=== PATIENT | male | born 1965 | race Caucasian/White ===

== ENCOUNTER 2017-10-21 07:15 | Emergency (ER) | payer OTHER ==
[~2017-10-21] VITALS: Ht 177.8 cm; Wt 77.1 kg
[~2017-10-21 07:15] MED LIST: ACETAMINOPHEN-1 EAC1 PO; ALBUTEROL2.5 MG/0.5 INH; AMOXICILLIN 50500 MG PO; AZITHROMYCIN 2250 MG PO; CIPROFLOXACIN500 M1 PO; CYCLOBENZAPRINE5 MG PO; DOXYCYCLINE 10100 MG PO; HYDROCODON-ACE1 EAC7 PO; HYDROCODONE-AP1 EAC6 PO; LEVAQUIN 500 M500 M2 PO; LEVAQUIN 500 M500 MG PO; LISINOPRIL40 MG; LOPRESSOR 50 MG50 M1; MEDROLDOSEPACK PO; MOBIC7.5 M1 PO; MUCINEX TA600 MG/TA1 PO; NAPROSYN500 MG PO; NAPROXEN 500MG500 MG PO; NOHOMEMEDICATIONS; NORCO 5-325 TA1 EACH PO; ONDANSETRON HCL4 M2 PO; PERCOCET 5-3251 EACH PO; PREDNISONE 10 M10 M1; PREDNISONE 10 M10 MG PO; PROMETHAZINE-C120 ML PO; ROBAXIN 750 MG750 MG PO; SENOKOTXTRA17.2 MG PO; SINGULAIR 10 MG10 M1 PO; TESSALON PERLE100 MG PO; TRAMADOL 50 MG50 MG PO; ULTRAM 50MG TAB50 MG PO; VENTOLIN HFA 1818 GM INH; ZOFRAN4 MG PO; ZPAK PO
[2017-10-21] MEDS ORDERED: OTHER MISCELL (08:14)
[2017-10-21] MEDS ORDERED: NAPROSYN500 MG PO (08:16)
[2017-10-21] MEDS ORDERED: NORCO 5-325 TA1 EACH PO (08:16)
[2017-10-21] MEDS ORDERED: CYCLOBENZAPRINE5 MG PO (08:16)
[2017-10-21 08:24] VITALS: BP 117/86
== END 2017-10-21 08:24 | disposition home or self-care (01) ==
LOC: M.ERS 07:15
DX: M25.512 Pain in left shoulder (principal); M95.8 Other specified acquired deformities of musculoskeletal system; I10 Essential (primary) hypertension; F17.210 Nicotine dependence, cigarettes, uncomplicated

== ENCOUNTER 2018-04-25 15:06 | Emergency (ER) | payer OTHER ==
[~2018-04-25] VITALS: Ht 182.9 cm; Wt 72.6 kg
[~2018-04-25 15:06] MED LIST changes: +OTHER MISCELL
[2018-04-25 15:16] VITALS: BP 141/92
[2018-04-25] MEDS ORDERED: AMOXICILLIN 50500 MG PO (15:25)
[2018-04-25] MEDS ORDERED: IBUPROFEN 800800 MG PO (15:25)
[2018-04-25] MEDS ORDERED: ACETAMINOPHEN-1 EAC1 PO (15:25)
== END 2018-04-25 15:38 | disposition home or self-care (01) ==
LOC: M.ERS 15:06
DX: K08.89 Other specified disorders of teeth and supporting structures (principal); F17.210 Nicotine dependence, cigarettes, uncomplicated; I10 Essential (primary) hypertension

== ENCOUNTER 2018-06-28 17:20 | Emergency (ER) | payer OTHER ==
[~2018-06-28] VITALS: Ht 177.8 cm; Wt 74.8 kg
[~2018-06-28 17:20] MED LIST changes: +IBUPROFEN 800800 MG PO
[2018-06-28 17:42] LABS: URINE BILIRUBIN NEGATIVE (Negative); URINE BLOOD 2+ (Negative); URINE CLARITY CLEAR; URINE COLOR YELLOW; URINE GLUCOSE-RANDOM NEGATIVE (Negative); URINE KETONES NEGATIVE (Negative); URINE LEUKOCYTES-REFLEX NEGATIVE (Negative); URINE NITRITE-REFLEX NEGATIVE (Negative); URINE PROTEIN NEGATIVE (Negative); URINE SPECIFIC GRAVITY >= 1.030 (1.005-1.030); URINE UROBILINOGEN 0.2 E.U./dl (0.2-1.0)
[2018-06-28 17:51] LABS: ABSOLUTE BASOPHILS 0.1 thou/uL (0.0-0.2); ABSOLUTE EOSINOPHILS 0.5 thou/uL (0.0-0.7); ABSOLUTE LYMPHOCYTES 2.3 thou/uL (0.8-5.3); ABSOLUTE MONOCYTES 0.7 thou/uL (0.0-1.2); ABSOLUTE NEUTROPHILS 5.7 thou/uL (1.6-8.1); BASOPHILS 0.7 %; EOSINOPHILS 5.1 %; HEMATOCRIT 46.6 % (42.0-52.0); LYMPHOCYTES 25.2 %; MCH 32.9 pg (26.0-34.0); MCHC 34.3 g/dL (28.0-37.0); MCV 95.9 fL (80.0-100.0); MONOCYTES 7.4 %; NUCLEATED RBCS 0 /100WBC; PLATELET COUNT* 243 thou/uL (150-400); POLYS 61.6 %; RBC 4.86 mil/uL (4.50-6.00); RDW-CV 13.4 % (10.5-14.5); WBC 9.2 thou/uL (4.0-11.0)
[2018-06-28 17:51] LABS: BACTERIA-REFLEX None Seen /HPF (None Seen); CASTS None Seen /LPF (None Seen); CRYSTALS None Seen /LPF (None Seen); MUCUS 0-3 Light strn/LPF (None Seen); SQUAMOUS 0-3 Few /LPF (0-3); URINE RBC 0-2 Rare /HPF (0-2); URINE WBC-REFLEX None Seen /HPF (0-5)
[2018-06-28 18:04] LABS: ANION GAP 9 mmol/L (7-16); BUN 15 mg/dL (7-18); CALCIUM 8.8 mg/dL (8.5-10.1); CHLORIDE 103 mmol/L (98-107); CO2 28 mmol/L (21-32); CREATININE 1.1 mg/dL (0.6-1.3); GLUCOSE 104 mg/dL (70-99); POTASSIUM 3.3 mmol/L (3.5-5.1); SODIUM 140 mmol/L (136-145)
[2018-06-28 18:09] LABS: ALBUMIN 3.7 g/dL (3.4-5.0); ALKALINE PHOSPHATASE 73 U/L (46-116); LIPASE 164 U/L (73-393); SGOT 15 U/L (15-37); SGPT 29 U/L (30-65); TOTAL BILIRUBIN 0.5 mg/dL (<0.1-1.0); TOTAL PROTEIN 7.7 g/dL (6.4-8.2); TROPONIN-I LEVEL <0.06 ng/mL (<0.06)
[2018-06-28] MEDS ORDERED: ZPAK PO (20:25)
[2018-06-28] MEDS ORDERED: NORCO 5-325 TA1 EACH PO (20:36)
[2018-06-28 20:56] VITALS: BP 112/68
--- NOTE | 2018-06-29 11:51 | EKG ---
[place] [address] ELECTROCARDIOGRAM REPORT Name: JOAN GAVIRIA Room: [facility]#: [id number] Admission: 06/28/18 Attend Phys: Discharge: 06/28/18 Date of : 63 Report #: [id number] THIS REPORT FOR: //name// [facility] ED Test Date: 2018-06-28 Test Time: 17:49:02 Pat Name: JOAN GAVIRIA Department: Room: Gender: M Instructional Material Director: Ti BEASLEY : 1965 Requested By: Luz Harvey Order Number: [id number] MD: Ed Eric Measurements Intervals [place] Rate: 92 P: 49 VT: 137 QRS: 90 QRSD: 93 T: 53 QT: 358 QTc: 443 Interpretive Statements Sinus rhythm Probable left atrial enlargement Borderline right axis deviation Compared to ECG 02/18/2017 15:54:00 No significant changes Electronically Signed On 06-29-2018 11:51:32 CLOUD SUBJECT MATTER EXPERT by Ed Eric [email or web address] <ELECTRONICALLY SIGNED> By: Ed Eric MD, [facility] WITHIN [facility] 06/29/18 1151 [id number] 48 Ed Eric MD, FACC /EPI
== END 2018-06-28 20:56 | disposition home or self-care (01) ==
LOC: M.ERS 17:20
PROVIDERS: Nurse Practitioner Family
DX: J18.9 Pneumonia, unspecified organism (principal); I10 Essential (primary) hypertension

== ENCOUNTER 2019-05-13 16:44 | Emergency (ER) | payer OTHER ==
[~2019-05-13] VITALS: Ht 177.8 cm; Wt 74.8 kg
[2019-05-13 16:50] VITALS: BP 123/85
[2019-05-13] MEDS ORDERED: NORCO 5-325 TA1 EAC1 PO (17:06)
[2019-05-13] MEDS ORDERED: ACYCLOVIR 800800 MG PO (17:06)
== END 2019-05-13 17:21 | disposition home or self-care (01) ==
LOC: M.ERS 16:44
DX: B02.9 Zoster without complications (principal); I10 Essential (primary) hypertension; F17.210 Nicotine dependence, cigarettes, uncomplicated

== ENCOUNTER 2019-10-30 16:47 | Inpatient (IN) | payer OTHER ==
[~2019-10-30] VITALS: Ht 177.8 cm; Wt 74.8 kg
[~2019-10-30 16:47] MED LIST changes: +ACYCLOVIR 800800 MG PO; +NORCO 5-325 TA1 EAC1 PO
[2019-10-30 16:49] VITALS: BP 140/83
[2019-10-30 17:12] LABS: ABSOLUTE EOSINOPHILS 0.2 thou/uL (0.0-0.7); ABSOLUTE LYMPHOCYTES 1.9 thou/uL (0.8-5.3); ABSOLUTE MONOCYTES 0.4 thou/uL (0.0-1.2); ABSOLUTE NEUTROPHILS 5.4 thou/uL (1.6-8.1); BASOPHILS 0.5 %; EOSINOPHILS 2.5 %; HEMATOCRIT 44.2 % (42.0-52.0); HEMOGLOBIN 15.6 gm/dL (14.0-18.0); LYMPHOCYTES 23.4 %; MCHC 35.3 g/dL (28.0-37.0); MCV 96.4 fL (80.0-100.0); MONOCYTES 5.6 %; MPV 8.5 fl. (7.2-11.1); NUCLEATED RBCS 0 /100WBC; PLATELET COUNT* 227 thou/uL (150-400); RBC 4.59 mil/uL (4.50-6.00); RDW-CV 13.4 % (10.5-14.5); WBC 7.9 thou/uL (4.0-11.0)
[2019-10-30 17:20] LABS: CALCIUM 8.8 mg/dL (8.5-10.1); CREATININE 1.3 mg/dL (0.6-1.3); POTASSIUM 3.1 mmol/L (3.5-5.1)
[2019-10-30 17:31] LABS: MAGNESIUM 2.1 mg/dL (1.8-2.4); TOTAL BILIRUBIN 0.6 mg/dL (<0.1-1.0); TOTAL PROTEIN 7.9 g/dL (6.4-8.2)
[2019-10-30 17:32] LABS: PROTIME 10.4 Seconds (9.20-11.50)
[2019-10-30 18:31] VITALS: BP 99/63
[2019-10-30 18:47] VITALS: BP 113/78
[2019-10-30 19:30] VITALS: BP 103/71
[2019-10-30] MEDS ORDERED: NAPROXEN SODIU220 M2 PO (21:32)
[2019-10-30] MEDS ORDERED: ASPIRIN EC325 M1 PO (21:32)
[2019-10-30] MEDS ORDERED: SUPER THERAVIT1 EACH PO (21:33)
[2019-10-30] MEDS ORDERED: PLAVIX 75 MG TA75 MG PO (21:33)
[2019-10-30] MEDS ORDERED: LIPITOR40 MG PO (21:33)
[2019-10-30] MEDS ORDERED: PRINIVIL20 M1 PO (21:34)
[2019-10-30] MEDS ORDERED: PANTOPRAZOLE SO40 M1 PO (21:34)
[2019-10-31] VITALS (8 sets, daily range): BP systolic 94–109; BP diastolic 58–68
[2019-10-31 00:47] LABS: AMP/METHAMP Negative (Negative); BARBITURATES Negative (Negative); BENZODIAZEPINES Negative (Negative); COCAINE Negative (Negative); METHADONE Negative (Negative); OPIATES POSITIVE (Negative); PCP Negative (Negative); THC Negative (Negative)
[2019-10-31 05:09] LABS: CHOLESTEROL 194 mg/dL (<200); HDL CHOLESTEROL 47 mg/dL (>40); LDL CHOLESTEROL 130 mg/dL (<100); SERUM ASSESSMENT CLEAR; TC:HDL 4.1 Ratio (Not establshd); TRIGLYCERIDE 87 mg/dL (<150); VLDL 17 mg/dL (<40)
[2019-10-31 10:13] LABS: CALCIUM 8.5 mg/dL (8.5-10.1); CREATININE 1.2 mg/dL (0.6-1.3); MAGNESIUM 2.1 mg/dL (1.8-2.4); PHOSPHORUS* 3.6 mg/dL (2.5-4.9); POTASSIUM 4.4 mmol/L (3.5-5.1)
--- NOTE | 2019-10-31 10:16 | EKG ---
[place] [address] ELECTROCARDIOGRAM REPORT Name: JOAN GAVIRIA Room: [address] ADM IN M.R.#: [id number] Admission: 10/30/19 Attend Phys: Mallory watson Sa Discharge: Date of : 63 Date of Service: 10/30/19 1649 Report #: [id number] THIS REPORT FOR: //name// [facility] ED Test Date: 2019-10-30 Test Time: 16:49:19 Pat Name: JOAN GAVIRIA Department: Room: [address] Gender: M Rag Baler: GRUPO : 1965 Requested By: Mallory Ravi Order Number: [id number] Rory MD: Ed Eric Measurements Intervals [place] Rate: 92 P: 58 ID: 132 QRS: 86 QRSD: 97 T: 40 QT: 358 QTc: 443 Interpretive Statements Sinus rhythm Probable left atrial enlargement Compared to ECG 06/28/2018 17:49:02 No significant changes Electronically Signed On 10-31-2019 10:14:32 CDT by Ed Eric [email or web address] <ELECTRONICALLY SIGNED> By: Ed Eric MD, [facility] 10/31/19 1014 1649 1649 Ed Eric MD, [facility] /EPI
--- NOTE | 2019-10-31 10:20 | EKG ---
[place] [address] ELECTROCARDIOGRAM REPORT Name: JOAN GAVIRIA Room: [address] ADM IN .R.#: [id number] Admission: 10/30/19 Attend Phys: Mallory watson Sa Discharge: Date of : 63 Date of Service: 10/30/192007 Report #: [id number] THIS REPORT FOR: //name// [facility] Test Date: 2019-10-30 Test Time: 20:08:36 Pat Name: JOAN GAVIRIA Department: Room: [facility] Gender: M Shop Hand: CHAPITO : 1965 Requested By: Romel Aguirre Order Number: [id number] MD: Ed Eric Measurements Intervals [place] Rate: 66 P: 50 MN: 142 QRS: 78 QRSD: 98 T: 69 QT: 407 QTc: 427 Interpretive Statements Sinus rhythm Electronically Signed On 10-31-2019 10:18:10 CDT by Ed Eric [email or web address] <ELECTRONICALLY SIGNED> By: Ed Eric MD, [facility] 10/31/19 1018 07 07 dE Eric MD, FACC /EPI
--- NOTE | 2019-10-31 16:03 | CON ---
[address] [address] CONSULTATION Name: JOAN GAVIRIA Room: [address] IN M.R.#: [id number] Admission: 10/30/19 Attend Phys: Mallory Cortez Discharge: Date of : 63 Report #: [id number] THIS REPORT FOR: //name// cc: HOA Kwong family physician/PCP HOA - Elenita family physician/PCP ~ THIS REPORT FOR: //name// CC: HOA physician/PCP Mallory Ravi DATE OF SERVICE: 10/31/2019 CARDIOLOGY CONSULTATION HISTORY OF PRESENT ILLNESS: The patient is a 54-year-old single white male who I was asked to see in the hospital after he complained of chest pain. Unfortunately, the old records are not available. However, the patient states that several years ago, he was living in [place]. He had a rapid heart rate up to 180 beats per minute. He apparently was cardioverted at that time and placed on warfarin. He was placed on blood pressure medications. He apparently had a stress test. However, he ran out of his medications and is no longer taking any medications. He stays fairly active at work. He was doing well until yesterday, he noticed a discomfort in his chest, in his jaw, in his back down his left arm. He felt short of breath. The pain persisted for several hours. Yesterday, the pain recurred. He finally came to the Emergency Room by private vehicle and was admitted for further evaluation and treatment. He denied the pain being related to food. He does have a chronic cough. He has had no bleeding. Denied trauma to his chest. He had no belch with the episode. He denies exertional dyspnea. He has had no recurrent palpitations or syncope. PAST MEDICAL HISTORY: He has had no surgical procedures. He does have a history of hypertension. MEDICATIONS: He is currently on no medications. ALLERGIES: He has no known drug allergies. FAMILY HISTORY: His father had heart attack. Brother has a pacemaker. SOCIAL HISTORY: He is , lives with a girlfriend here in [place]. Used to smoke a pack of cigarettes a day. No alcohol abuse, denies illicit drug use. 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 Unfortunately, he has no medical insurance. REVIEW OF SYSTEMS: He has had no history of stroke. He does have chronic cough. No liver disease, kidney disease, cancer, psychiatric illness, [place] [address] CONSULTATION Name: JOAN GAVIRIA Room: [address]#: [id number] Admission: 10/30/19 Attend Phys: Mallory Cortez Discharge: Date of : 63 Report #: [id number] PHYSICAL EXAMINATION: GENERAL: Revealed a middle-aged male, appeared in no distress. VITAL SIGNS: He had a blood pressure of 110/60, pulse is 80. He is afebrile. HEENT: He was anicteric. Conjunctivae are pink. Mucous membranes moist. NECK: Veins nondistended. No carotid bruits. CHEST: Clear to auscultation. CARDIOVASCULAR: Regular rate and rhythm without murmur. ABDOMEN: Soft. EXTREMITIES: Had no edema. Posterior tibial pulse 2+ bilaterally. SKIN: Warm, dry. NEUROLOGIC: Nonfocal. DIAGNOSTIC DATA: His ECG on admission yesterday showed a sinus rhythm, nonspecific ST and T-wave changes. His workup in the Emergency Room: Sodium 140, potassium 3.1, creatinine 1.3, glucose 150. Liver function studies were normal. Troponins all 0.06. Cholesterol 194, triglyceride 87, HDL 47, LDL 130. TSH 1.4. His urine drug screen positive for opiates. White blood cell count 7.9, hemoglobin 15.6. His chest x-ray done in the Emergency Room last night showed normal heart size, possible infiltrate in the right lower lobe. IMPRESSION AND RECOMMENDATIONS: 1. Possible unstable angina. Recommend cardiac catheterization. 2. Hypertension. The patient is no longer on medications. 3. History of cardioversion. Possible atrial fibrillation. No clinical recurrences. 4. Tobacco abuse. 5. Chronic bronchitis. <ELECTRONICALLY SIGNED> By: Ed Eric MD, [facility] 10/31/19 1603 0810 [id number] Eric MD, FAC /nt
--- NOTE | 2019-10-31 16:23 | CARD ---
[address] [address] CARDIAC CATH REPORT Name: JOAN GAVIRIA Room: [address] IN ..#: [id number] Admission: 10/30/19 Attend Phys: Mallory Cortez Discharge: Date of : 63 Report #: [id number] THIS REPORT FOR: //name// cc: HOA - No family physician/PCP HOA - No family physician/PCP ~ APPROVED REPORT Study performed: 10/31/2019 12:45:20 Patient Details Patient Status: In-Patient Room #: The patient is a 54 year-old male Event Personnel Ed Eric Quiller Tender, Elisa Zamudio RN Airplane Technician, Vinicio Brewer MULTICULTURAL SERVICES LIBRARIAN Monitor, Azeem Wheatley MULTICULTURAL SERVICES LIBRARIAN Scrub, Cecy Ball RTR Monitor Procedures Performed Art Access - R radial artery Left Heart Cath w/or w/o Coronaries Hemostasis with Hemoband Indication Chest pain Risk Factors Hypertension, Tobacco History () Procedure Narrative The patient was brought electively to the Cardiac Catheterization Laboratory and was prepped and draped in a sterile manner. The right wrist was infiltrated with 2% Lidocaine subcutaneous anesthesia. A Slender Glidesheath sheath was inserted into the right femoral artery. Coronary angiography was performed using coronary diagnostic catheters. The right coronary system was accessed and visualized with a Diagnostic 6 Fr JR 4 catheter. The left coronary system was accessed and visualized with a Diagnostic 6 Fr JL 4 catheter. The left ventricle was accessed and visualized with a Diagnostic 6 Fr Pigtail catheter. Left ventricular/Aortic Valve gradient assessed via catheter pullback. Left ventriculogram was performed in MILLER projection. Closure device was deployed with a 6 Fr Vasc-Band Reg 24cm. The patient tolerated the procedure well and there were no complications associated with the procedure. [place] [address] CARDIAC CATH REPORT Name: JOAN GAVIRIA Room: [address] IN [facility]#: [id number] Admission: 10/30/19 Attend Phys: Mallory Cortez Discharge: Date of : 63 Report #: [id number] Intraoperative Conscious Sedation Sedation start time: 14:28 Case end Time: 14:44 Fentanyl 25 mcg Versed 2 mg Fluoro Time: 2.3 minutes Dose: DAP 02644 cGycm2 422 mGy Contrast Type and Amount: Omnipaque 90 ml Coronary Angiography The patient's coronary anatomy is right dominant. [place] Artery Percent Stenosis Left Main: 0 % Prox LAD: 0 % Mid/Distal LAD: 0 % Circumflex: 0 % RCA: 0 % Ramus: 0 % Left Ventriculography The left ventricular ejection fraction is estimated to be 60-65%. Left ventricular wall motion abnormalities are not present. There is no mitral insufficiency. Hemodynamics The aortic pressure is 85/51 mmHg with a mean of 65 mmHg. The left ventricular pressure is 79/6 mmHg with a mean of mmHg. The left ventricular end diastolic pressure is 8 mmHg. There was no gradient across the aortic valve upon pullback. Pullback from the left ventricle to the aorta revealed no gradient across the aortic valve. Conclusion 1. no significant cad 2. LVEF 60-65% Recommendations Smoking Cessation Aggressive Medical Therapy <ELECTRONICALLY SIGNED> By: Ed Eric MD, [facility] 10/31/19 1621 1621 1621Drasta Eric MD, [facility] /INF
[2019-10-31] MEDS ORDERED: NICOTINE1 EAC2 TRANSDERM (17:09)
[2019-10-31] MEDS ORDERED: LIPITOR 40 MG T40 M1 PO (17:09)
== END 2019-10-31 18:10 | disposition home or self-care (01) | DRG 287 ==
LOC: M.ERS 16:47 → M.2W 17:48 → M.TBA-ER 17:48 → M.2W 18:42
PROVIDERS: Emergency Medicine Emergency Medical Services; ADMIT Family Medicine
PROC: B2111ZZ Fluoroscopy of Multiple Coronary Arteries using Low Osmolar Contrast (ICD-10-PCS; principal; 2019-10-31)
PROC: 4A023N7 Measurement of Cardiac Sampling and Pressure, Left Heart, Percutaneous Approach (ICD-10-PCS; principal; 2019-10-31)
PROC: B2151ZZ Fluoroscopy of Left Heart using Low Osmolar Contrast (ICD-10-PCS; principal; 2019-10-31)
DX: R07.89 Other chest pain (principal); I10 Essential (primary) hypertension; F17.210 Nicotine dependence, cigarettes, uncomplicated; J42 Unspecified chronic bronchitis; F41.9 Anxiety disorder, unspecified; E78.00 Pure hypercholesterolemia, unspecified; Z82.49 Family history of ischemic heart disease and other diseases of the circulatory system

== ENCOUNTER 2020-06-09 10:53 | Emergency (ER) | payer OTHER ==
[~2020-06-09] VITALS: Ht 175.3 cm; Wt 74.8 kg
[~2020-06-09 10:53] MED LIST changes: +ASPIRIN EC325 M1 PO; +LIPITOR 40 MG T40 M1 PO; +LIPITOR40 MG PO; +NAPROXEN SODIU220 M2 PO; +NICOTINE1 EAC2 TRANSDERM; +PANTOPRAZOLE SO40 M1 PO; +PLAVIX 75 MG TA75 MG PO; +PRINIVIL20 M1 PO; +SUPER THERAVIT1 EACH PO
[2020-06-09 10:59] VITALS: BP 131/77
[2020-06-09] MEDS ORDERED: PENICILLIN V P500 MG PO (12:16)
[2020-06-09] MEDS ORDERED: IBUPROFEN 800800 M1 PO (12:16)
[2020-06-09] MEDS ORDERED: NORCO 5-325 TA1 EAC2 PO (12:16)
== END 2020-06-09 12:50 | disposition home or self-care (01) ==
LOC: M.ERS 10:53
DX: K04.7 Periapical abscess without sinus (principal); K02.9 Dental caries, unspecified; I10 Essential (primary) hypertension; E78.00 Pure hypercholesterolemia, unspecified; F17.210 Nicotine dependence, cigarettes, uncomplicated

== ENCOUNTER 2021-01-28 06:34 | Emergency (ER) | payer OTHER ==
[~2021-01-28] VITALS: Ht 177.8 cm; Wt 74.8 kg
[~2021-01-28 06:34] MED LIST changes: +IBUPROFEN 800800 M1 PO; +NORCO 5-325 TA1 EAC2 PO; +PENICILLIN V P500 MG PO
[2021-01-28 08:48] LABS: HEMATOCRIT 44.1 % (42.0-52.0); HEMOGLOBIN 15.4 gm/dL (14.0-18.0); MCH 33.5 pg (26.0-34.0); MCHC 34.8 g/dL (28.0-37.0); MPV 7.6 fl. (7.2-11.1); RBC 4.6 mil/uL (4.50-6.00); RDW-CV 13.2 % (10.5-14.5); WBC 6.8 thou/uL (4.0-11.0)
[2021-01-28 09:07] LABS: CALCIUM 8.6 mg/dL (8.5-10.1); CREATININE 0.9 mg/dL (0.6-1.3); POTASSIUM 3.8 mmol/L (3.5-5.1)
[2021-01-28 09:12] LABS: ALBUMIN 3.9 g/dL (3.4-5.0); TOTAL BILIRUBIN 0.6 mg/dL (<0.1-1.0); TOTAL PROTEIN 7.3 g/dL (6.4-8.2)
--- NOTE | 2021-01-28 10:22 | EKG ---
[place] [address] ELECTROCARDIOGRAM REPORT Name: JOAN GAVIRIA Room: [facility]#: [id number] Admission: 01/28/21 Attend Phys: Discharge: Date of : 63 Date of Service: 01/28/21 0641 Report #: [id number] THIS REPORT FOR: //name// [facility] ED Test Date: 2021-01-28 Test Time: 06:41:17 Pat Name: JOAN GAVIRIA Department: Room: Gender: Development Rep: [place] : 1965 Requested By: Jose Vera Order Number: [id number] MD: Ed Eric Measurements Intervals [place] Rate: 83 P: 64 DC: 138 QRS: 96 QRSD: 97 T: 62 QT: 366 QTc: 430 Interpretive Statements Sinus rhythm Probable left atrial enlargement Borderline right axis deviation Compared to ECG 10/30/2019 20:08:36 No significant changes Electronically Signed On 01-28-2021 10:22:18 CDT by Ed Eric [email or web address] <ELECTRONICALLY SIGNED> By: Ed Eric MD, [facility] 01/28/21 1022 0641 0641 Ed Eric MD, [facility] /EPI
[2021-01-28] MEDS ORDERED: NORCO5 PO (10:27)
[2021-01-28] MEDS ORDERED: ZOFRAN ODT4 MG PO (10:27)
[2021-01-28 10:39] VITALS: BP 104/56
== END 2021-01-28 10:40 | disposition home or self-care (01) ==
LOC: M.ERS 06:34
PROVIDERS: Emergency Medicine
DX: R51.9 Headache, unspecified (principal); Z20.822 Contact with and (suspected) exposure to COVID-19; R11.10 Vomiting, unspecified; F17.210 Nicotine dependence, cigarettes, uncomplicated; I10 Essential (primary) hypertension

== ENCOUNTER 2021-06-10 12:16 | Emergency (ER) | payer OTHER ==
[~2021-06-10] VITALS: Ht 177.8 cm; Wt 74.8 kg
[~2021-06-10 12:16] MED LIST changes: +NORCO5 PO; +ZOFRAN ODT4 MG PO
[2021-06-10 13:17] LABS: ABSOLUTE BASOPHILS 0.1 thou/uL (0.0-0.2); ABSOLUTE EOSINOPHILS 0.3 thou/uL (0.0-0.7); ABSOLUTE MONOCYTES 0.6 thou/uL (0.0-1.2); ABSOLUTE NEUTROPHILS 4.4 thou/uL (1.6-8.1); EOSINOPHILS 3.9 %; HEMATOCRIT 49.7 % (42.0-52.0); HEMOGLOBIN 17.1 gm/dL (14.0-18.0); LYMPHOCYTES 26.9 %; MCH 33.1 pg (26.0-34.0); MCHC 34.3 g/dL (28.0-37.0); MCV 96.5 fL (80.0-100.0); MONOCYTES 7.9 %; NUCLEATED RBCS 0 /100WBC; PLATELET COUNT* 237 thou/uL (150-400); POLYS 60.3 %; RBC 5.15 mil/uL (4.50-6.00); RDW-CV 13.5 % (10.5-14.5); WBC 7.3 thou/uL (4.0-11.0)
[2021-06-10 13:55] LABS: ALBUMIN 3.6 g/dL (3.4-5.0); CALCIUM 8.5 mg/dL (8.5-10.1); CREATININE 1.2 mg/dL (0.6-1.3); TOTAL BILIRUBIN 0.2 mg/dL (<0.1-1.0); TOTAL PROTEIN 7.5 g/dL (6.4-8.2)
[2021-06-10] MEDS ORDERED: HYDROCODON-ACE1 EAC7 PO (14:10)
--- NOTE | 2021-06-10 14:19 | EKG ---
[place] [address] ELECTROCARDIOGRAM REPORT Name: JOAN GAVIRIA Room: [facility]#: [id number] Admission: 06/10/21 Attend Phys: Discharge: Date of : 63 Date of Service: 06/10/21 1226 Report #: [id number] THIS REPORT FOR: //name// [facility] ED Test Date: 2021-06-10 Test Time: 12:26:10 Pat Name: JOAN GAVIRIA Department: Room: Gender: Clearance Rep: : 1965 Requested By: Kip Esposito Order Number: [id number] MD: Galindo Bonilla Measurements Intervals [place] Rate: 94 P: 53 AK: 126 QRS: 104 QRSD: 85 T: 56 QT: 337 QTc: 422 Interpretive Statements Sinus rhythm Possible left atrial enlargement Right axis deviation Compared to ECG 01/28/2021 06:41:17 No significant changes Electronically Signed On 06-10-2021 14:19:10 PROFILE GRINDER by Galindo Bonilla [email or web address] <ELECTRONICALLY SIGNED> By: Galindo Bonilla MD, [facility] 06/10/21 1419 1226 1226 Galindo Bonilla MD, [facility] /EPI
[2021-06-10 14:20] VITALS: BP 115/76
== END 2021-06-10 14:20 | disposition home or self-care (01) ==
LOC: M.ERS 12:16
PROVIDERS: Family Medicine
DX: R55 Syncope and collapse (principal); I10 Essential (primary) hypertension; F17.210 Nicotine dependence, cigarettes, uncomplicated